=== PATIENT | male | born 1940 | race Caucasian/White ===

== ENCOUNTER → 2017-11-21 | Outpatient (CLI) | payer MEDICARE, BC ==
[2017-11-21] VITALS (9 sets, daily range): BP systolic 107–138; BP diastolic 57–75
[~2017-11-21] VITALS: Ht 185.4 cm; Wt 106.6 kg
[~2017-11-21] MED LIST: AFRIN15 ML NS; ALEVE220 M1 PO; ASPIRIN EC81 M1 PO; ATORVASTATIN CA40 MG PO; CENTRUM SILVER1 EAC5 PO; CENTRUM TABLET1 TAB PO; DIABETA; DIABETA 5MG TABL5 MG PO; DULCOLAX5 MG PO; ENEMA133 M1 RC; FAMVIR250 MG PO; FISH OIL 1,001000 M2 PO; FISHOIL; GLYBURIDE 5 MG T5 M1 PO; GOLYTELY PACKE1 EACH PO; KLOR-CON; KLOR-CON 1010 MEQ PO; LEVAQUIN 250 M250 MG PO; LEVAQUIN 500 M500 MG PO; LISINOPRIL10 MG PO; LOPRESSOR25 PO; METFORMIN; METFORMIN HCL500 MG PO; MIRALAX17 GM PO; MUCINEX TA600 MG/TA2 PO; NORCO 5-325 TA1 EACH PO; PACERONE 200 M200 M1 PO; PIOGLITAZONE15 MG; RED YEAST RICE600 M1 PO; VITAMIN D1000 UNI1 PO; WELCHOL3.75 GM PO
[2017-11-21 08:17] LABS: HEMATOCRIT 43.7 % (42.0-52.0); HEMOGLOBIN 14.7 gm/dL (14.0-18.0); MCH 31.6 pg (26.0-34.0); MCHC 33.8 g/dL (28.0-37.0); MCV 93.6 fL (80.0-100.0); MPV 8.1 fl. (7.2-11.1); RBC 4.67 mil/uL (4.50-6.00)
[2017-11-21 08:23] LABS: APTT 27.5 Seconds (25.0-31.3); INR 1.1; PROTIME 11.1 Seconds (9.20-11.50)
[2017-11-21 08:24] LABS: ANION GAP 10 mmol/L (7-16); BUN 23 mg/dL (7-18); CHLORIDE 103 mmol/L (98-107); CO2 25 mmol/L (21-32); CREATININE 1.1 mg/dL (0.6-1.3); GLUCOSE 175 mg/dL (70-99); POTASSIUM 4.4 mmol/L (3.5-5.1); SODIUM 138 mmol/L (136-145)
[2017-11-21 08:34] LABS: ALBUMIN 3.5 g/dL (3.4-5.0); ALKALINE PHOSPHATASE 37 U/L (46-116); CHOLESTEROL 190 mg/dL (<200); HDL CHOLESTEROL 34 mg/dL (>40); LDL CHOLESTEROL 117 mg/dL (<100); SERUM ASSESSMENT Clear; SGOT 22 U/L (15-37); SGPT 38 U/L (30-65); TC:HDL 5.6 Ratio (Not establshd); TOTAL BILIRUBIN 0.4 mg/dL (<0.1-1.0); TOTAL PROTEIN 7.9 g/dL (6.4-8.2); TRIGLYCERIDE 196 mg/dL (<150); VLDL 39 mg/dL (<40)
[2017-11-21 10:12] LABS: BE -4.4 mmol/L (-2 to +3); HCO3 20.9 mmol/L (22.0-26.0); PCO2 39.4 mmHg (35.0-45.0); PO2 66.8 mmHg (75.0-100.0); pH 7.342 (7.340-7.450)
[2017-11-21 10:13] LABS: BE -1.2 mmol/L (-2 to +3); HCO3 24.9 mmol/L (22.0-26.0); PCO2 VENOUS 46.4 mmHg (41.0-51.0)
[2017-11-21 10:16] LABS: PO2 VENOUS 38.9 mmHg (35.0-45.0)
--- NOTE | 2017-11-21 11:23 | EKG ---
[place] [address] ELECTROCARDIOGRAM REPORT Name: COCOALIX Room: [facility]#: [id number] Admission: 11/21/17 Attend Phys: Sam Morris MD, F Discharge: Date of : 44 Report #: [id number] THIS REPORT FOR: //name// [facility] Test Date: 2017-11-21 Test Time: 09:00:11 Pat Name: ALIX SEPULVEDA Department: Room: Gender: M Film Masker: : 1940 Requested By: Sam Morris Order Number: [id number] Reading MD: Sam Morris Measurements Intervals [place] Rate: 74 P: 2 KS: 162 QRS: -32 QRSD: 100 T: 75 QT: 391 QTc: 434 Interpretive Statements Sinus rhythm Abnormal R-wave progression, early transition Left ventricular hypertrophy Anterior ST elevation, probably due to LVH Compared to ECG 03/20/2016 18:58:28 Left ventricular hypertrophy now present Electronically Signed On 11-21-2017 11:23:18 CDT by Sam Morris [email or web address] <ELECTRONICALLY SIGNED> By: Sam Morris MD, [facility] 11/21/17 1123 09 0900 Sam Morris MD, [facility] /EPI
--- NOTE | 2017-11-21 15:24 | EKG ---
[place] [address] ELECTROCARDIOGRAM REPORT Name: COCOPERRIALIX Kavita Room: [facility]#: [id number] Admission: 11/21/17 Attend Phys: Sam Morris MD, F Discharge: Date of : 44 Report #: [id number] THIS REPORT FOR: //name// [facility] Test Date: 2017-11-21 Test Time: 13:48:01 Pat Name: ALIX SEPULVEDA Department: Room: Gender: M Check Inspector: ARYAN : 1940 Requested By: Sam Morris Order Number: [id number] Reading MD: Sam Morris Measurements Intervals [place] Rate: 76 P: 34 ID: 176 QRS: -38 QRSD: 105 T: 74 QT: 384 QTc: 432 Interpretive Statements Sinus rhythm Probable left atrial enlargement Left axis deviation Abnormal R-wave progression, early transition Minimal ST elevation, anterior leads Baseline wander in lead(s) V6 Compared to ECG 11/21/2017 09:00:11 no change Electronically Signed On 11-21-2017 15:23:47 CDT by Sam Morris [email or web address] <ELECTRONICALLY SIGNED> By: Sam Morris MD, [facility] 11/21/17 1523 1348 1348 Sam Morris MD, [facility] /EPI
--- NOTE | 2017-11-21 16:03 | CARD ---
[address] [address] CARDIAC CATH REPORT Name: ALIX SEPULVEDA [id number] Admission: 11/21/17 Attend Phys: Sam Morris MD, F Discharge: Date of : 44 Report #: [id number] THIS REPORT FOR: //name// APPROVED REPORT Study performed: 11/21/2017 08:07:24 Patient Details Patient Status: Out-Patient Room #: The patient is a 77 year-old male Event Personnel Alessandra Painter RN Senior Policy Analyst, Sam Morris Counter Sales Person, Julia Blair Monitor, Libby Jose RTR Scrub Procedures Performed Art Access - R femoral artery* Matteo Access - R femoral vein , Selective Right and Left Coronary Angiography, Left Heart Catheterization, Aortogram Indication Syncope, Chest pain, Murmur Risk Factors Hypercholesterolemia, Diabetes Admission/Lab Medications/Medications given during procedure Aspirin Procedure Narrative The patient was brought electively to the Cardiac Catheterization Laboratory and was prepped and draped in a sterile manner. The right femoral was infiltrated with 1% Lidocaine subcutaneous anesthesia. A Right Heart Catheterization was performed with a 7 Fr. [place]-Bruce catheter and pressure were recorded. Cardiac outputs were obtained by the Thermal Dilution method. A 7Fr x 11cm Marifer sheath was inserted into the right femoral artery. Coronary angiography was performed using coronary diagnostic catheters. The right coronary system was accessed and visualized with a Diagnostic 6fr JR 4 catheter. The left coronary system was accessed and visualized with a Diagnostic 6fr JL 4 catheter. The left ventricle was accessed and visualized with a Diagnostic 6fr angled pigtail catheter. Left ventricular/Aortic Valve gradient assessed via catheter pullback. Left ventriculogram was performed in SAGE projection. An aortogram [place] [address] CARDIAC CATH REPORT Name: ALIX SEPULVEDA Room: [facility]#: [id number] Admission: 11/21/17 Attend Phys: Sam Morris MD, F Discharge: Date of : 44 Report #: [id number] performed. Pre-demployment femoral angiogram was performed . Closure device was deployed with a 6 Fr MynxGrip 6/7F. The patient tolerated the procedure well and there were no complications associated with the procedure. There was no hematoma. Aortic valve was crossed with a Custer wire. Aortic valve gradient was measured with a dual lumen pigtail catheter. Hemostasis of the femoral vein puncture site was achieved with direct pressure. Intraoperative Conscious Sedation Sedation start time: 09:40 Case end Time: 10:40 Fentanyl 25 mcg Versed 2 mg Dose: 1069.16 mGy Contrast Type and Amount: Visipaque 100 ml Coronary Angiography The patient's coronary anatomy is right dominant. Diagnostic Cath Left Main 0% stenosis LAD proximal 50% stenosis and 70% discrete stenosis just after the takeoff of the second diagonal branch Diagonal 1 noted to be a small vessel and had a proximal 90% stenosis Diagonal 2 noted to be a medium sized vessel and had a ostial 80% stenosis Circumflex 0% stenosis OM2 ostial 60% stenosis Right Coronary 30% distal stenosis R PDA 100% occluded and filled retrograde by collaterals from the left coronary RPLV 40% proximal stenosis Left Ventriculography The left ventricle is normal in size with normal contractility. The left ventricular ejection fraction is estimated to be 50-55%. Left ventricular wall motion abnormalities are not present. There is no mitral insufficiency. Hemodynamics The right atrial mean pressure is 4 mmHg. The right ventricular pressure is 34/4 mmHg. The pulmonary artery pressure is 25/9 mmHg with a mean of 15 mmHg. The mean pulmonary capillary wedge pressure is 12 mmHg. The aortic pressure is 105/57 mmHg with a mean of mmHg. The left ventricular pressure is 161/7 mmHg with [place] [address] CARDIAC CATH REPORT Name: ALIX SEPULVEDA Room: [facility]#: [id number] Admission: 11/21/17 Attend Phys: Sam Morris MD, F Discharge: Date of : 42 Report #: [id number] left ventricular end diastolic pressure is 14 mmHg. Pullback from the left ventricle to the aorta revealed a 45-50 mm gradient across the aortic valve. PaO2 saturation is 70.30 %. Arterial saturation is 92.30 %. The cardiac output and index were assessed using thermodilution. The cardiac output using thermo method is 5.90 L/min. The cardiac index using thermo method is 2.58 L/min/m2. The peak gradient across the aortic valve is 45-50 mmHg. The aortic valve area is 0.8 cm2. Conclusion 1. lad had a proximal 50% and mid 70% stenosis 2. second diagonal branch had an ostial 80% stenosis 3. second marginal branch of the circumflex had an ostial 60% stenosis 4. posterior descending branch of the rca was chronically occluded and filled by collaterals from the left coronary 5. severe aortic stenosis with a valve area of 0.8 cm squared and moderate insufficiency Recommendations Valve Surgery CABG <ELECTRONICALLY SIGNED> By: Sam Morris MD, FACC 11/21/17 1603 1603 1603Dasif Morris MD, FACC /INF
== END | disposition home or self-care (01) ==
LOC: M.CL 07:20
PROVIDERS: Internal Medicine Cardiovascular Disease
DX: I25.10 Atherosclerotic heart disease of native coronary artery without angina pectoris (principal); I25.82 Chronic total occlusion of coronary artery; I10 Essential (primary) hypertension; E11.9 Type 2 diabetes mellitus without complications; E78.00 Pure hypercholesterolemia, unspecified; Z79.82 Long term (current) use of aspirin; Z79.899 Other long term (current) drug therapy; Z98.890 Other specified postprocedural states

== ENCOUNTER 2017-12-18 21:59 | Observation (INO) | payer MEDICARE, BC ==
[~2017-12-18] VITALS: Ht 185.4 cm; Wt 98.1 kg
[~2017-12-18 21:59] MED LIST changes: -KLOR-CON 1010 MEQ PO; -PACERONE 200 M200 M1 PO; -VITAMIN D1000 UNI1 PO
[2017-12-18 22:03] VITALS: BP 161/87
[2017-12-18] MEDS ORDERED: VITAMIN D1000 UNI1 PO (22:13)
[2017-12-18] MEDS ORDERED: FISH OIL 1,001000 M2 PO (22:14)
[2017-12-18] MEDS ORDERED: KLOR-CON 1010 MEQ PO (22:14)
[2017-12-18] MEDS ORDERED: ATORVASTATIN CA40 MG PO (22:15)
[2017-12-18 22:16] LABS: ABSOLUTE BASOPHILS 0.1 thou/uL (0.0-0.2); ABSOLUTE EOSINOPHILS 1.1 thou/uL (0.0-0.7); ABSOLUTE LYMPHOCYTES 2.6 thou/uL (0.8-5.3); ABSOLUTE MONOCYTES 0.8 thou/uL (0.0-1.2); ABSOLUTE NEUTROPHILS 8.2 thou/uL (1.6-8.1); BASOPHILS 0.9 %; EOSINOPHILS 8.7 %; HEMATOCRIT 36.9 % (42.0-52.0); HEMOGLOBIN 12.1 gm/dL (14.0-18.0); LYMPHOCYTES 20.4 %; MCH 30.3 pg (26.0-34.0); MCHC 32.9 g/dL (28.0-37.0); MPV 7.3 fl. (7.2-11.1); NUCLEATED RBCS 0 /100WBC; PLATELET COUNT* 349 thou/uL (150-400); RBC 4.01 mil/uL (4.50-6.00); RDW-CV 14.3 % (10.5-14.5); WBC 12.8 thou/uL (4.0-11.0)
[2017-12-18] MEDS ORDERED: PACERONE 200 M200 M1 PO (22:16)
[2017-12-18 22:27] LABS: ANION GAP 5 mmol/L (7-16); BUN 26 mg/dL (7-18); CALCIUM 9.4 mg/dL (8.5-10.1); CHLORIDE 99 mmol/L (98-107); CO2 30 mmol/L (21-32); CREATININE 1.4 mg/dL (0.6-1.3); GLUCOSE 172 mg/dL (70-99); POTASSIUM 4.4 mmol/L (3.5-5.1); SODIUM 134 mmol/L (136-145)
[2017-12-18 22:37] LABS: INR 1.2
[2017-12-18 22:38] LABS: ALBUMIN 2.9 g/dL (3.4-5.0); ALKALINE PHOSPHATASE 113 U/L (46-116); LIPASE 138 U/L (73-393); NT-PRO BRAIN NAT PEPTIDE 577 pg/mL (<300); SGOT 24 U/L (15-37); SGPT 36 U/L (30-65); TOTAL BILIRUBIN 0.4 mg/dL (<0.1-1.0); TROPONIN-I LEVEL <0.06 ng/mL (<0.06)
[2017-12-19 00:03] VITALS: BP 126/81
[2017-12-19 00:15] VITALS: BP 124/67
[2017-12-19 04:00] VITALS: BP 115/71
--- NOTE | 2017-12-19 04:00 | NUR ---
PT ARRIVED FROM ER AT 0015, WENT TO THE BATHROOM WITH STANDBY ASSIST AND LAID DOWN IN BED. ASSESSMENT COMPLETED CHARTED. PT WENT HOME AND PT ANSWERED ALL THE QUESTIONS EXCEPT FOR HIS MEDICATION TIMES WHICH WILL BRING TOMORROW. NO C/O PAIN OR DISCOMFORT MOST OF THE TIME EXCEPT AT CERTAIN TIMES WITH BREAKTHROUGH PAIN OF 2-3 IN THE CHEST. A & O X 4, ABLE TO MAKE NEEDS KNOW, CALL LIGHT WITHIN REACH, NPO AT THIS TIME FOR CARDIAC CONSULT. WILL CONTINUE TO MONITOR.
[2017-12-19 05:20] LABS: HEMATOCRIT 34.7 % (42.0-52.0); HEMOGLOBIN 11.6 gm/dL (14.0-18.0); MCH 30.4 pg (26.0-34.0); MCHC 33.4 g/dL (28.0-37.0); MPV 7.4 fl. (7.2-11.1); RBC 3.82 mil/uL (4.50-6.00); RDW-CV 14.2 % (10.5-14.5); WBC 10.1 thou/uL (4.0-11.0)
[2017-12-19 05:47] LABS: ALBUMIN 2.6 g/dL (3.4-5.0); CALCIUM 8.8 mg/dL (8.5-10.1); CREATININE 1.2 mg/dL (0.6-1.3); POTASSIUM 4.3 mmol/L (3.5-5.1); TOTAL BILIRUBIN 0.4 mg/dL (<0.1-1.0); TOTAL PROTEIN 7.5 g/dL (6.4-8.2)
[2017-12-19 07:44] VITALS: BP 107/71
--- NOTE | 2017-12-19 10:19 | EKG ---
[place] [address] ELECTROCARDIOGRAM REPORT Name: COCOALIX PRAKASH Kavita Room: [address] [facility]#: [id number] Admission: 12/18/17 Attend Phys: Janusz Alexander Discharge: Date of : 44 Report #: [id number] THIS REPORT FOR: //name// [facility] ED Test Date: 2017-12-18 Test Time: 22:04:32 Pat Name: ALIX SEPULVEDA Department: Room: Gender: Petroleum Laboratory Technician: CYNTHIA Prakash : 1940 Requested By: Evelyn Arrington Order Number: [id number] MD: Sam Morris Measurements Intervals [place] Rate: 75 P: 10 MO: 172 QRS: 28 QRSD: 159 T: -22 QT: 426 QTc: 476 Interpretive Statements Sinus rhythm Right bundle branch block Compared to ECG 11/21/2017 13:48:01 Right bundle-branch block now present ST (T wave) deviation no longer present Electronically Signed On 12-19-2017 10:19:14 CDT by Sam Morris [email or web address] <ELECTRONICALLY SIGNED> By: Sam Morris MD, [facility] 12/19/17 1019 Sam Morris MD, [facility] /EPI
[2017-12-19 12:39] VITALS: BP 124/71
--- NOTE | 2017-12-19 13:19 | NUR ---
Nutrition: Pt seen for nursing risk 2 points. Pt and stated he used to weigh 235#. He fluctuates now, 208-220#. Pt was eating lunch at time of visit. RX: statin, insulin. BG 150, alb 2.6. H/o CABG, pacemaker, DM, HTN, strokes. Admitted with chest pain. Had cardiac consult. No concerns for true wt loss at this time. Consider low nutrition risk.
--- NOTE | 2017-12-19 15:19 | 2DMMODE ---
[place] [address] 2 D/M-MODE ECHOCARDIOGRAM Name: ALIX SEPULVEDA Room: [address] Alfredo Aleman#: [id number] Admission: 12/18/17 Attend Phys: Rupert Leonard Discharge: Date of : 44 Date of Service: 12/19/17 1518 Report #: [id number] THIS REPORT FOR: //name// APPROVED REPORT Study performed: 12/19/2017 11:57:04 EXAM: Comprehensive 2D, Doppler, and color-flow Echocardiogram Patient Location: In-Patient Room #: [facility] Status: routine BSA: 2.22 HR: 66 bpm BP: 107/71 mmHg Rhythm: NSR Other Information Study Quality: Good Indications Pacemaker CAD Chest Pain Aortic valve replacement, CABG and PM three weeks ago 2D Dimensions LVEF(%): 51.00 (>50%) IVSd: 15.26 (7-11mm) LVOT Diam: 18.97 (18-24mm) LVDd: 46.73 mm PWd: 10.75 (7-11mm) Ascending Ao: 42.41 (22-36mm) LVDs: 34.61 (25-40mm) Aortic Root: 34.79 mm Rodriguez's LVEF: 51.00 % Volumes Left Atrial Volume (Systole) LA ESV Index: 22.60 mL/m2 Aortic Valve AoV Peak Ricki.: 2.07 m/s AO Peak Gr.: 17.17 mmHg LVOT Max P.92 mmHg AO Mean Gr.: 9.14 mmHg LVOT Mean P.11 mmHg LVOT Max V: 0.99 m/s AO V2 VTI: 33.15 cm LVOT Mean V: 0.67 m/s ANDRES (VTI): 1.63 cm2 LVOT V1 VTI: 19.18 [place] [address] 2 D/M-MODE ECHOCARDIOGRAM Name: ALIX SEPULVEDA Room: [address] MZoilaRZoila#: [id number] Admission: 12/18/17 Attend Phys: Rupert Leonard Discharge: Date of : 44 Date of Service: 12/19/17 1518 Report #: [id number] Mitral Valve E/A Ratio: 0.87 MV Decel. Time: 217.55 ms MV E Max Ricki.: 0.90 m/s MV PHT: 63.09 ms MVA (PHT): 3.49 cm2 TDI E/Lateral E': 7.50 E/Medial E': 18.00 Medial E' Ricki.: 0.05 m/s Lateral E' Ricki.: 0.12 m/s Pulmonary Valve PV Peak Ricki.: 1.13 m/s PV Peak Gr.: 5.13 mmHg Tricuspid Valve TR Peak Gr.: 14.54 mmHg RVSP: 19.00 mmHg Left Ventricle The left ventricle is normal size. There is normal LV segmental wall motion. Mild concentric left ventricular hypertrophy. Left ventricular systolic function is normal. The left ventricular ejection fraction is within the normal range. LVEF is 55-60%. The left ventricular diastolic function is normal. Right Ventricle The right ventricle is normal size. The right ventricular systolic function is normal. Pacemaker lead is present in the right ventricle. Atria The left atrium size is normal. The right atrium size is normal. Aortic Valve Bioprosthetic aortic valve is present. No aortic regurgitation is present. Mitral Valve There is mitral annular calcification. There is no mitral valve regurgitation noted. No evidence of mitral valve stenosis. Tricuspid Valve The tricuspid valve is normal in structure. Trace tricuspid regurgitation. The RVSP is ___19____ [place] [address] 2 D/M-MODE ECHOCARDIOGRAM Name: ALIX SEPULVEDA Room: [address] M.R.#: [id number] Admission: 12/18/17 Attend Phys: Rupert Leonard Discharge: Date of : 44 Date of Service: 12/19/17 1518 Report #: [id number] Pulmonic Valve Pulmonic valve is not well visualized. There is no pulmonic valvular regurgitation. Great Vessels Aortic root is mildly dilated. IVC is not visualized. Pericardium There is no pericardial effusion. <Conclusion> Mild concentric left ventricular hypertrophy. LVEF is 55-60%. Bioprosthetic aortic valve is present. <ELECTRONICALLY SIGNED> By: Sam Morris MD, FACC 12/19/17 1518 1518 1518 Sam Morris MD, FACC /INF
--- NOTE | 2017-12-19 15:28 | NUR ---
Pt is A&O. Resides at home with his . Normally independent with ADLS. No DME. Current with [facility]. No hx of SNF. Pt scheduled to dc to home today, CM faxed dc meds to [facility]. Family to transport home.
[2017-12-19 16:09] VITALS: BP 124/71
--- NOTE | 2017-12-19 16:55 | NUR ---
ASSUMED CARE OF PATIENT AFTER REPORT THIS MORNING. PATIENT AWAKE, ALERT, AND ORIENED APPROPRIATELY. PHYSICAL ASSESSMENT COMPLETED AND CHARTED. VITAL SIGNS STABLE. OXYGEN SATURATION WITHIN NORMAL LIMITS ON ROOM AIR. PATIEN TRANSFERS AND AMBULATES INDEPENDENTLY WITHOUT DIFFICULTY. USES CALL LIGHT APPROPRIATELY. RECEIVED ORDERS TO DISCHARGE PATIENT HOME. DISCHARGE PAPERWORK COMPLETED AND DISCUSSED WITH PATIENT. FORGOT TO HAVE PATIENT SIGN PAPERWORK BUT A COPY WAS SENT HOME WITH THE PATIENT AND THE . IV DISCONTINUED. PATIENT ESCORTED TO FRONT DOOR BY THIS NURSE. DISCHARGED AT 1625.
--- NOTE | 2017-12-21 16:31 | CON ---
[address] [address] CONSULTATION Name: ALIX SEPULVEDA Room: [address] Alfredo Aleman#: [id number] Admission: 12/18/17 Attend Phys: Janusz Alexander Discharge: 12/19/17 Date of : 44 Report #: [id number] THIS REPORT FOR: //name// CC: Sam Leonard DATE OF SERVICE: 12/19/2017 HISTORY OF PRESENT ILLNESS: The patient is a 77-year-old white male who I was asked to see in the hospital after he had an episode of chest pain. The patient has had a heart murmur for several years. He actually had a syncopal spell back in [address] scan of the head showed remote infarction, although the Doppler study of his carotids showed no significant stenosis. An echocardiogram showed moderate aortic stenosis. He did well until recently developed a burning in his chest with exertion, relieved with rest. I saw him in the office in October and recommended he undergo a cardiac catheterization. This was performed here at [facility] as an outpatient on November 21. Results showed 70% stenosis at the mid LAD, 80% narrowing of a second diagonal branch, small marginal branch had an ostial 60% stenosis. The distal right coronary was chronically occluded, filled by collaterals. There is severe aortic stenosis noted. It was recommended he undergo aortic valve replacement and coronary bypass surgery. He was then admitted several days later to [facility] and underwent aortic valve replacement using a tissue valve and 2-vessel bypass surgery using a left radial free graft. His post open heart surgery was complicated by several issues. 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 He had a temporary pacer placed and eventually underwent implantation of permanent pacemaker by Dr. Torres. He also developed an ileus. He was rather slow postoperatively and eventually discharged to rehabilitation. He was finally discharged home just a week ago. He started home therapy with a physical therapist using walking assistance. He again had physical therapy yesterday. After dinner last night, he noticed a sharp pain in his chest. It tended to come and go. Because of the sharp pain in his chest, recent surgery, his took him to the hospital last night and he was admitted. He denies any chest tightness. He denies shortness of breath, radiation of pain, nausea or diaphoresis. He has had no fever, edema. Denied palpitation or syncope. PAST MEDICAL HISTORY: Otherwise significant for previous knee arthroscopy. He has a history of diabetes, high blood pressure, hyperlipidemia. MEDICATIONS: He is currently on after his bypass surgery included amiodarone 200 mg a day, aspirin 81 mg a day, Lipitor 40 mg a day, glyburide 5 mg a day, lisinopril 10 mg a day, metoprolol 25 mg twice a day, [place] [address] CONSULTATION Name: COCOALIX Room: [address] DARRYL Aleman#: [id number] Admission: 12/18/17 Attend Phys: Janusz Alexander Discharge: 12/19/17 Date of : 44 Report #: [id number] ALLERGIES: He has no known drug allergies. FAMILY HISTORY: He had a daughter who of heart disease. SOCIAL HISTORY: He is . He and his live in [place]. 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 No smoking or alcohol abuse. REVIEW OF SYSTEMS: He has had previous episode where he had a brief loss of consciousness and MRI actually showed a small stroke in the past. He has had no history of asthma, peptic ulcer disease, liver disease, kidney disease. He has had no cancer, no psychiatric illness. PHYSICAL EXAMINATION: GENERAL: Revealed an elderly male, lying in bed, appeared in no distress. VITAL SIGNS: He had a blood pressure of 120/70, pulse 60. He is afebrile. HEENT: He was anicteric. Conjunctivae pink. Mucous members moist. NECK: Veins do not appear distended. CHEST: Clear to auscultation. CARDIOVASCULAR: Regular rate and rhythm, grade 2 systolic ejection murmur. ABDOMEN: Soft, nontender. EXTREMITIES: Had no edema. SKIN: Warm and dry. RADIOLOGICAL DATA: His ECG when he was admitted showed a sinus rhythm with a right bundle branch block. Workup in the Emergency Room last night included sodium 136, creatinine 1.2, glucose 126. Liver function studies were normal. Troponin 0.06 on 3 sets. His white blood cell count was 10.1, hemoglobin 11.6. Workup in the Emergency Room, he had a V/Q scan that showed low probability for pulmonary embolus. Chest x-ray showed no infiltrate. IMPRESSION AND RECOMMENDATIONS: 1. Chest pain. Atypical for angina. Suspect musculoskeletal. I think it is reasonable at this time to discharge the patient 2. Coronary artery disease. Status post bypass surgery. I would continue aspirin a day. 3. Aortic stenosis. Status post tissue valve, aortic valve replacement. Valve appears to be functioning normally. 4. Diabetes. 5. Hyperlipidemia. The patient is on a statin drug. 6. History of high-degree atrioventricular block. Normal dual chamber pacemaker function. <ELECTRONICALLY SIGNED> By: Sam Morris MD, [facility] 12/21/17 1631 1347 1939David Mary Anne Morris MD, [facility] /nt
== END 2017-12-19 16:25 | disposition home or self-care (01) ==
LOC: M.ERS 21:59 → M.2W 23:30 → M.TBA-ER 23:30 → M.2W 23:30
PROVIDERS: Emergency Medicine; ADMIT Internal Medicine
DX: I25.10 Atherosclerotic heart disease of native coronary artery without angina pectoris (principal); R07.9 Chest pain, unspecified; I10 Essential (primary) hypertension; I26.99 Other pulmonary embolism without acute cor pulmonale; E11.9 Type 2 diabetes mellitus without complications; I35.0 Nonrheumatic aortic (valve) stenosis; J96.01 Acute respiratory failure with hypoxia; I69.90 Unspecified sequelae of unspecified cerebrovascular disease; E78.5 Hyperlipidemia, unspecified; Z98.890 Other specified postprocedural states; Z95.2 Presence of prosthetic heart valve; Z95.0 Presence of cardiac pacemaker; Z86.79 Personal history of other diseases of the circulatory system; Z95.5 Presence of coronary angioplasty implant and graft

== ENCOUNTER → 2019-06-06 | Outpatient (CLI) | payer MEDICARE, BC ==
[~2019-06-06] MED LIST changes: +KLOR-CON 1010 MEQ PO; +PACERONE 200 M200 M1 PO; +VITAMIN D1000 UNI1 PO
== END ==
LOC: M.CT 14:20 → M.MRI 14:30 → M.CT 14:30
DX: G31.9 Degenerative disease of nervous system, unspecified (principal); I73.9 Peripheral vascular disease, unspecified

== ENCOUNTER → 2019-06-12 | Outpatient (CLI) | payer MEDICARE, BC | LOC: M.CT 06-09 16:45 | DX: I63.9 Cerebral infarction, unspecified (principal); I65.23 Occlusion and stenosis of bilateral carotid arteries ==

== ENCOUNTER 2019-06-18 10:13 | Emergency (ER) | payer MEDICARE, BC ==
[~2019-06-18] VITALS: Ht 185.4 cm; Wt 99.8 kg
[2019-06-18 10:54] LABS: ABSOLUTE EOSINOPHILS 0.2 thou/uL (0.0-0.7); ABSOLUTE LYMPHOCYTES 1.5 thou/uL (0.8-5.3); ABSOLUTE MONOCYTES 0.6 thou/uL (0.0-1.2); ABSOLUTE NEUTROPHILS 3.8 thou/uL (1.6-8.1); BASOPHILS 0.7 %; EOSINOPHILS 3.1 %; HEMATOCRIT 45.5 % (42.0-52.0); HEMOGLOBIN 15.5 gm/dL (14.0-18.0); MCH 31.6 pg (26.0-34.0); MCHC 34.2 g/dL (28.0-37.0); MCV 92.5 fL (80.0-100.0); MONOCYTES 9.1 %; MPV 7.7 fl. (7.2-11.1); NUCLEATED RBCS 0 /100WBC; PLATELET COUNT* 199 thou/uL (150-400); POLYS 63.1 %; RBC 4.92 mil/uL (4.50-6.00); RDW-CV 13.6 % (10.5-14.5); WBC 6.1 thou/uL (4.0-11.0)
[2019-06-18 10:58] LABS: CALCIUM 8.8 mg/dL (8.5-10.1); CREATININE 1.2 mg/dL (0.6-1.3); POTASSIUM 4.1 mmol/L (3.5-5.1)
[2019-06-18 10:59] LABS: APTT 26.1 Seconds (25.0-31.3); INR 1.1; PROTIME 11.4 Seconds (9.20-11.50)
[2019-06-18 11:08] LABS: ALBUMIN 3.6 g/dL (3.4-5.0); TOTAL BILIRUBIN 0.7 mg/dL (<0.1-1.0); TOTAL PROTEIN 7.8 g/dL (6.4-8.2)
[2019-06-18 11:24] LABS: URINE BILIRUBIN NEGATIVE (Negative); URINE BLOOD NEGATIVE (Negative); URINE CLARITY CLEAR; URINE COLOR YELLOW; URINE GLUCOSE-RANDOM 1+ (Negative); URINE KETONES NEGATIVE (Negative); URINE LEUKOCYTES-REFLEX NEGATIVE (Negative); URINE NITRITE-REFLEX NEGATIVE (Negative); URINE PROTEIN TRACE (Negative); URINE SPECIFIC GRAVITY 1.015 (1.005-1.030); URINE UROBILINOGEN 0.2 E.U./dl (0.2-1.0)
[2019-06-18 13:29] VITALS: BP 136/90
--- NOTE | 2019-06-19 11:39 | EKG ---
[place] [address] ELECTROCARDIOGRAM REPORT Name: ALIX [facility]PULVEDA [id number] Admission: 06/18/19 Attend Phys: Discharge: 06/18/19 Date of : 44 Report #: [id number] THIS REPORT FOR: //name// [facility] ED Test Date: 2019-06-18 Test Time: 10:27:06 Pat Name: ALIX SEPULVEDA Department: Room: Gender: M Final Installer Inspector: : 1940 Requested By: Meet Giron Order Number: [id number] MD: Sam Morris Measurements Intervals [place] Rate: 76 P: 31 VA: 180 QRS: 13 QRSD: 145 T: 17 QT: 420 QTc: 473 Interpretive Statements Sinus rhythm Probable left atrial enlargement Right bundle branch block Baseline wander in lead(s) I,V2,V3,V4 Compared to ECG 12/18/2017 22:04:32 No significant changes Electronically Signed On 06-19-2019 11:39:39 FLUE DUST LABORER by Sam Morris [email or web address] <ELECTRONICALLY SIGNED> By: Sam Morris MD, [facility] 06/19/19 1139 1027 1027 Sam Morris MD, [facility] /EPI
== END 2019-06-18 13:30 | disposition home or self-care (01) ==
LOC: M.ERS 10:13
PROVIDERS: Family Medicine
DX: R53.1 Weakness (principal); E11.9 Type 2 diabetes mellitus without complications; I10 Essential (primary) hypertension; E78.5 Hyperlipidemia, unspecified; E78.00 Pure hypercholesterolemia, unspecified; I25.10 Atherosclerotic heart disease of native coronary artery without angina pectoris; Z95.1 Presence of aortocoronary bypass graft; Z86.73 Personal history of transient ischemic attack (TIA), and cerebral infarction without residual deficits

== ENCOUNTER → 2019-07-21 | Outpatient (CLI) | payer MEDICARE, BC ==
[2019-07-21 21:10] LABS: IgA 484 mg/dL (61-437); IgG 1278 mg/dL (700-1600); IgM 204 mg/dL (15-143)
[2019-07-24 10:11] LABS: ANA INTERPRETATION Positive (Negative); ANTI-SSA <0.2 AI (0.0-0.9)
--- NOTE | 2019-08-04 11:51 | EEG ---
[address] [address] EEG STUDY REPORT Name: ALIX SEPULVEDA Room: [facility]#: [id number] Admission: 07/21/19 Attend Phys: Perfecto Branham MD Discharge: Date of : 44 Report #: [id number] THIS REPORT FOR: //name// CC: Radha Branham DATE OF SERVICE: 07/21/2019 This patient is being evaluated for dizziness. EEG is being done to evaluate the possibility of seizure. The patient's EEG was done by placing the electrode by standard 10-20 system of electrode placement. The patient became drowsy and that is associated with bilateral slowing. Background activity appeared to be about 11 Hz 30 microvolt. Photic stimulation is unremarkable. Throughout the record, no active epileptiform activity was noticed. IMPRESSION: This patient's EEG is unremarkable. Thank you very much for this referral. <ELECTRONICALLY SIGNED> By: Perfecto Branham MD 08/04/19 1151 1514 [id number] Branham MD /nt
== END ==
LOC: M.CRD 10:00
PROVIDERS: Psychiatry & Neurology Neuromuscular Medicine
DX: G62.9 Polyneuropathy, unspecified (principal); G47.10 Hypersomnia, unspecified

== ENCOUNTER → 2019-08-19 | Outpatient (CLI) | payer MEDICARE, BC ==
[2019-08-19 11:58] LABS: HEMATOCRIT 45.1 % (42.0-52.0); HEMOGLOBIN 15.5 gm/dL (14.0-18.0); MCH 31.5 pg (26.0-34.0); MCHC 34.5 g/dL (28.0-37.0); MCV 91.3 fL (80.0-100.0); NUCLEATED RBCS 0 /100WBC; PLATELET COUNT* 192 thou/uL (150-400); RBC 4.93 mil/uL (4.50-6.00); RDW-CV 14.6 % (10.5-14.5); WBC 6.9 thou/uL (4.0-11.0)
[2019-08-19 12:09] LABS: ALBUMIN 3.6 g/dL (3.4-5.0); CALCIUM 8.7 mg/dL (8.5-10.1); CREATININE 1.2 mg/dL (0.6-1.3); POTASSIUM 4.4 mmol/L (3.5-5.1); TOTAL BILIRUBIN 0.5 mg/dL (<0.1-1.0); TOTAL PROTEIN 7.9 g/dL (6.4-8.2)
[2019-08-19 12:16] LABS: ABSOLUTE LYMPHOCYTES 1.6 thou/uL (0.8-5.3); ABSOLUTE MONOCYTES 0.6 thou/uL (0.0-1.2); ABSOLUTE NEUTROPHILS 4.7 thou/uL (1.6-8.1); ANISOCYTOSIS 1+; PLATELET ESTIMATE ADEQUATE; POIKILOCYTOSIS 1+
[2019-08-19 13:10] LABS: ESR (SEDRATE) 10 mm/hr (0-20)
[2019-08-19 22:07] LABS: HEMOGLOBIN 15.7 g/dL (13.0-17.7)
[2019-08-20 02:06] LABS: IgA 498 mg/dL (61-437); IgG 1284 mg/dL (700-1600); IgM 201 mg/dL (15-143)
[2019-08-21 10:09] LABS: M-SPIKE Not Observed g/dL (Not Observed)
[2019-08-21 13:09] LABS: KAPPA FREE LIGHT CHAINS 25.7 mg/L (3.3-19.4); LAMBDA FREE LIGHT CHAINS 14.6 mg/L (5.7-26.3)
--- NOTE | 2019-09-10 07:52 | HEMONC ---
[address] [address] HEMATOLOGY ONCOLOGY NOTE Name: ALIX SEPULVEDA Room: [facility]#: [id number] Admission: 08/19/19 Attend Phys: Jose Jackson MD Discharge: Date of : 44 Report #: [id number] THIS REPORT FOR: //name// CC: Radha Nolen [facility] DATE OF SERVICE: 08/19/2019 REFERRING PHYSICIAN: Dr. Arana. DIAGNOSIS: Abnormal serum protein electrophoresis. SUBJECTIVE: A 79-year-old male who has been evaluated due to focal weakness at his lower extremities and unsteady gait. The patient was hospitalized for TIA symptoms. Per the , the workup came back negative. 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 The patient denies any major fatigue or weight loss, nausea, vomiting. He denies any back pain or frequent infections. The patient denies any skin changes. REVIEW OF SYSTEMS: All systems reviewed. It was negative except the above. PAST MEDICAL HISTORY: Prior TIA, hypertension, dyslipidemia, diabetes. PAST SURGICAL HISTORY: Aortic valve replacement, pacemaker placement in 2018. SOCIAL HISTORY: No smoking, alcohol abuse or drug abuse. MEDICATIONS: Aspirin 81 mg p.o. daily, atorvastatin 40 mg p.o. daily, glyburide 5 mg twice a day, lisinopril 5 mg p.o. daily, Mobic 15 mg daily, metformin 500 mg p.o. daily, omega 3 one tab p.o. daily. ALLERGIES: None known allergies. PHYSICAL EXAMINATION: VITAL SIGNS: Today, blood pressure is 152/84, pulse is 85, respirations 20, temperature is 97.5, saturations 97% on room air. GENERAL: The patient was sitting in chair, was not in acute distress. LUNGS: Clear to auscultations bilaterally. HEART: Regular rate and rhythm. S1, S2 within normal limits. ABDOMEN: Soft, nontender, nondistended, bowel sounds positive. EXTREMITIES: No edema, no cyanosis, no clubbing. 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 The patient, at this point, does not have any symptoms to suggest a plasma cell dyscrasia and no evidence of anemia, hypercalcemia or renal failure. RECOMMENDATIONS: I would like to obtain repeat serum protein electrophoresis to rule out any possibility of reactive process that happened 4 weeks ago. In addition to that, we will obtain immunofixation and free light chain quantitative in addition to beta 2 microglobulin. We will obtain a peripheral blood smear with a CMP. <ELECTRONICALLY SIGNED> By: Jose Jackson MD 09/10/19 0752 1130 1308Moallen Jackson MD /nt
== END ==
LOC: M.RTH 10:42
PROVIDERS: Internal Medicine
DX: D89.0 Polyclonal hypergammaglobulinemia (principal); R74.8 Abnormal levels of other serum enzymes; I10 Essential (primary) hypertension; E78.5 Hyperlipidemia, unspecified; E11.9 Type 2 diabetes mellitus without complications

== ENCOUNTER 2019-12-02 13:38 | Emergency (ER) | payer MEDICARE, BC ==
[~2019-12-02] VITALS: Ht 185.4 cm; Wt 99.8 kg
[2019-12-02] MEDS ORDERED: METFORMIN HCL500 M3 PO (14:01)
[2019-12-02] MEDS ORDERED: LIPITOR40 MG PO (14:02)
[2019-12-02 16:12] VITALS: BP 136/81
== END 2019-12-02 16:18 | disposition home or self-care (01) ==
LOC: M.ERS 13:38
DX: M25.511 Pain in right shoulder (principal); I10 Essential (primary) hypertension; I25.10 Atherosclerotic heart disease of native coronary artery without angina pectoris; E11.9 Type 2 diabetes mellitus without complications; E78.00 Pure hypercholesterolemia, unspecified; E78.5 Hyperlipidemia, unspecified; Z95.0 Presence of cardiac pacemaker

== ENCOUNTER 2019-12-15 03:15 | Emergency (ER) | payer MEDICARE, BC ==
[~2019-12-15] VITALS: Ht 185.4 cm; Wt 99.8 kg
[~2019-12-15 03:15] MED LIST changes: +LIPITOR40 MG PO; +METFORMIN HCL500 M3 PO
[2019-12-15] MEDS ORDERED: NORCO 5-325 TA1 EAC1 PO (03:59)
[2019-12-15] MEDS ORDERED: FLEXERIL PO (03:59)
[2019-12-15 04:41] LABS: ABSOLUTE BASOPHILS 0.1 thou/uL (0.0-0.2); ABSOLUTE EOSINOPHILS 0.4 thou/uL (0.0-0.7); ABSOLUTE LYMPHOCYTES 1.6 thou/uL (0.8-5.3); ABSOLUTE MONOCYTES 0.5 thou/uL (0.0-1.2); ABSOLUTE NEUTROPHILS 5.5 thou/uL (1.6-8.1); BASOPHILS 0.6 %; EOSINOPHILS 4.4 %; HEMATOCRIT 46.9 % (42.0-52.0); HEMOGLOBIN 16.1 gm/dL (14.0-18.0); LYMPHOCYTES 20.1 %; MCH 31.9 pg (26.0-34.0); MCHC 34.3 g/dL (28.0-37.0); MCV 92.9 fL (80.0-100.0); MONOCYTES 6.6 %; MPV 7.8 fl. (7.2-11.1); NUCLEATED RBCS 0 /100WBC; PLATELET COUNT* 220 thou/uL (150-400); POLYS 68.3 %; RBC 5.05 mil/uL (4.50-6.00); RDW-CV 13.7 % (10.5-14.5); WBC 8.1 thou/uL (4.0-11.0)
[2019-12-15 04:50] LABS: CREATININE 1.3 mg/dL (0.6-1.3); POTASSIUM 4.1 mmol/L (3.5-5.1)
[2019-12-15 04:53] LABS: ALBUMIN 3.7 g/dL (3.4-5.0); TOTAL BILIRUBIN 0.4 mg/dL (<0.1-1.0); TOTAL PROTEIN 7.8 g/dL (6.4-8.2)
[2019-12-15 05:13] VITALS: BP 178/104
== END 2019-12-15 05:13 | disposition home or self-care (01) ==
LOC: M.ERS 03:15
PROVIDERS: Family Medicine
DX: M79.652 Pain in left thigh (principal); I10 Essential (primary) hypertension; I25.10 Atherosclerotic heart disease of native coronary artery without angina pectoris; E11.9 Type 2 diabetes mellitus without complications; E78.00 Pure hypercholesterolemia, unspecified; E78.5 Hyperlipidemia, unspecified; Z95.0 Presence of cardiac pacemaker

== ENCOUNTER → 2020-01-29 | Outpatient (CLI) | payer MEDICARE, BC ==
[~2020-01-29] MED LIST changes: +FLEXERIL PO; +NORCO 5-325 TA1 EAC1 PO
[2020-01-29 13:12] LABS: ALBUMIN 4.2 g/dL (3.4-5.0); ALKALINE PHOSPHATASE 73 U/L (46-116); CHOLESTEROL 161 mg/dL (<200); DIRECT BILIRUBIN 0.2 mg/dL (<0.1-0.3); HDL CHOLESTEROL 41 mg/dL (>40); LDL CHOLESTEROL 88 mg/dL (<100); SGOT 22 U/L (15-37); SGPT 26 U/L (30-65); TC:HDL 3.9 Ratio (Not establshd); TOTAL BILIRUBIN 0.9 mg/dL (<0.1-1.0); TOTAL PROTEIN 8.9 g/dL (6.4-8.2); TRIGLYCERIDE 163 mg/dL (<150); VLDL 33 mg/dL (<40)
[2020-01-29 13:13] LABS: SERUM ASSESSMENT Clear
== END ==
LOC: M.LAB 12:46
PROVIDERS: ATTEND Nurse Practitioner
DX: E78.1 Pure hyperglyceridemia (principal)

== ENCOUNTER 2021-02-08 16:28 | Observation (INO) | payer MEDICARE, BC ==
[~2021-02-08] VITALS: Ht 185.4 cm; Wt 104.5 kg
[2021-02-08 16:37] VITALS: BP 104/58
[2021-02-08 17:08] LABS: ABSOLUTE EOSINOPHILS 0.1 thou/uL (0.0-0.7); ABSOLUTE LYMPHOCYTES 1.4 thou/uL (0.8-5.3); ABSOLUTE MONOCYTES 0.6 thou/uL (0.0-1.2); ABSOLUTE NEUTROPHILS 6.3 thou/uL (1.6-8.1); BASOPHILS 0.4 %; EOSINOPHILS 0.9 %; HEMATOCRIT 45.7 % (42.0-52.0); HEMOGLOBIN 15.6 gm/dL (14.0-18.0); LYMPHOCYTES 16.8 %; MCH 31.5 pg (26.0-34.0); MCHC 34.1 g/dL (28.0-37.0); MCV 92.4 fL (80.0-100.0); MONOCYTES 7.2 %; MPV 7.5 fl. (7.2-11.1); NUCLEATED RBCS 0 /100WBC; PLATELET COUNT* 209 thou/uL (150-400); POLYS 74.7 %; RBC 4.94 mil/uL (4.50-6.00); RDW-CV 14.6 % (10.5-14.5); WBC 8.4 thou/uL (4.0-11.0)
[2021-02-08 17:17] LABS: CALCIUM 8.9 mg/dL (8.5-10.1); CREATININE 1.5 mg/dL (0.6-1.3); POTASSIUM 3.8 mmol/L (3.5-5.1)
[2021-02-08 17:21] LABS: ALBUMIN 3.6 g/dL (3.4-5.0); TOTAL BILIRUBIN 1.1 mg/dL (<0.1-1.0); TOTAL PROTEIN 8.1 g/dL (6.4-8.2)
[2021-02-08 21:34] VITALS: BP 148/87
[2021-02-09] VITALS (8 sets, daily range): BP systolic 133–173; BP diastolic 67–98
--- NOTE | 2021-02-09 05:43 | NUR ---
PT ADMISSION DOCUMENTED. PT MOVED TO HOSPITAL BED. FLUIDS INFUSING. PT ABLE TO MAKE NEEDS KNOWN.
--- NOTE | 2021-02-09 09:22 | EKG ---
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 02/09/21 0921 1637 1637 Sam Morris MD, [facility] /EPI
--- NOTE | 2021-02-09 09:27 | NUR ---
Admission Assessment Admitted from Home Mental Status upon admission Alert & Oriented x 3 Living Arrangements: House Lives with: or they live with patient -Emily Support system: Name Phone number Relationship Emily Capellan [phone] Can patient return to prior living arrangements? Yes Activities of daily living: Independent Assistive device: Shower chair Prior resource use: x3 years ago-doesn't remember name co
[2021-02-09 10:15] LABS: CALCIUM 8.8 mg/dL (8.5-10.1); CREATININE 0.9 mg/dL (0.6-1.3); POTASSIUM 3.8 mmol/L (3.5-5.1)
[2021-02-09 10:50] LABS: URINE BILIRUBIN NEGATIVE (Negative); URINE BLOOD NEGATIVE (Negative); URINE CLARITY CLEAR; URINE COLOR YELLOW; URINE GLUCOSE-RANDOM NEGATIVE (Negative); URINE KETONES NEGATIVE (Negative); URINE LEUKOCYTES-REFLEX NEGATIVE (Negative); URINE NITRITE-REFLEX NEGATIVE (Negative); URINE PROTEIN NEGATIVE (Negative); URINE SPECIFIC GRAVITY 1.025 (1.005-1.030); URINE UROBILINOGEN 0.2 E.U./dl (0.2-1.0)
--- NOTE | 2021-02-09 13:35 | NUR ---
FURNACE OPERATOR REPORTS THAT THE PATIENT IS CLEARED FOR DISCHARGE BY DR. RIVAS.
== END 2021-02-09 14:05 | disposition home or self-care (01) ==
LOC: M.ERS 16:28 → M.TBA-ER 18:48
PROVIDERS: Emergency Medicine Emergency Medical Services; Family Medicine; ADMIT Internal Medicine; ATTEND Internal Medicine
DX: R55 Syncope and collapse (principal); Z20.822 Contact with and (suspected) exposure to COVID-19; E11.9 Type 2 diabetes mellitus without complications; I10 Essential (primary) hypertension; E78.5 Hyperlipidemia, unspecified; I25.10 Atherosclerotic heart disease of native coronary artery without angina pectoris; I35.0 Nonrheumatic aortic (valve) stenosis; Z79.82 Long term (current) use of aspirin; Z79.899 Other long term (current) drug therapy